=== PATIENT | female | born 1950 ===

== ENCOUNTER 2020-12-16 02:24 | Inpatient (IN) ==
[2020-12-16] MEDS ORDERED: GLUCAGON 1 MG VIAL IM PRN (05:44)
[2020-12-16] MEDS ORDERED: ONDANSETRON 4 MG/2 ML VIAL IV PRN (05:44)
[2020-12-16] MEDS ORDERED: DEXTROSE 50% 25 GM/50 ML VIAL IV PRN (05:44)
[2020-12-16] MEDS ORDERED: LACTULOSE 20 GM/30 ML UDCUP PO SCH (06:00)
[2020-12-16] MEDS: SODIUM CHLORIDE 0.9% 1,000 ML IV SCH ×2 (06:30→18:05)
[2020-12-16 07:59] LABS: Basophils % 0.8 % (0.0-0.8); Eosinophils % 1.1 % (0.00-10.9); Hematocrit 32.6 VOL% (35.7-47.0); Hemoglobin 10.7 GM/DL (12.0-16.0); Immature Granulocytes % 0.8 %; Immature Granulocytes Absolute 0.02 #; Lymphocytes # 0.4 10*3/uL (1.4-4.0); Lymphocytes % 16.3 % (21.3-54.2); Mean Corpuscular HGB Conc 32.8 GM/DL (32-36); Mean Corpuscular Volume 99.1 FL (87-102); Mean Platelet Volume 12.9 FL (9.6-12.0); Monocytes % 15.5 % (1.7-12.7); Neutrophils % 65.5 % (38.7-73.9); Platelet Count 41 T/CUMM (130-400); Red Blood Count 3.29 MC/CUMM (3.8-5.5); Red Cell Distribution Width 14.9 % (9.3-17.3); White Blood Count 2.6 T/CUMM (4-12)
[2020-12-16 08:08] LABS: INR 1.2; PT Patient Result 13.2 SECS (9.8-11.9)
[2020-12-16 08:16] LABS: Hypochromasia 1+; Platelet Estimate Decreased
[2020-12-16] MEDS: INSULIN REGULAR 100 UNIT/ML SUBCUT SCH ×4 (08:56→20:53)
[2020-12-16] MEDS ORDERED: RIFAXIMIN 550 MG TABLET PO SCH (09:00)
[2020-12-16 09:09] LABS: Albumin 1.5 G/DL (3.4-5.0); Bilirubin,Total 2.4 MG/DL (0.2-1.0); Calcium 8.8 MG/DL (8.5-10.1); Osmolality,Calculated 292.3 MOS/KG (273-304); Total Protein 6.7 G/DL (5.0-7.5)
[2020-12-16] MEDS: ALBUTEROL 2.5 MG/3 ML NEB RESP TX SCH ×3 (09:59→19:41)
[2020-12-16] MEDS: FUROSEMIDE 40 MG TABLET PO SCH (15:08)
[2020-12-16] MEDS: CALCIUM (CARBONATE) 600 MG TABLET PO SCH ×2 (15:08→21:05)
[2020-12-16] MEDS: LACTULOSE 20 GM/30 ML UDCUP PO SCH ×4 (15:08→21:05)
[2020-12-16] MEDS: PANTOPRAZOLE 40 MG TABLET PO SCH (15:09)
[2020-12-16] MEDS: SPIRONOLACTONE 100 MG TABLET PO SCH (15:09)
[2020-12-16] MEDS: ASPIRIN EC 81 MG TABLET PO SCH (15:09)
[2020-12-16] MEDS: amLODIPine 10 MG TABLET PO SCH (15:10)
[2020-12-16] MEDS ORDERED: SODIUM CHLORIDE 0.9% 1,000 ML IV PRN (16:01)
[2020-12-16] MEDS: RIFAXIMIN 550 MG TABLET NG SCH (21:05)
[2020-12-17] MEDS: ALBUTEROL 2.5 MG/3 ML NEB RESP TX SCH ×4 (00:01→20:14)
[2020-12-17] MEDS: LACTULOSE 20 GM/30 ML UDCUP PO SCH ×6 (01:33→21:03)
[2020-12-17] MEDS: SODIUM CHLORIDE 0.9% 1,000 ML IV SCH ×2 (03:23→19:29)
[2020-12-17 04:54] LABS: Basophils % 0.6 % (0.0-0.8); Eosinophils % 0.3 % (0.00-10.9); Hematocrit 31.5 VOL% (35.7-47.0); Hemoglobin 10.8 GM/DL (12.0-16.0); Immature Granulocytes % 0.3 %; Immature Granulocytes Absolute 0.01 #; Lymphocytes # 0.3 10*3/uL (1.4-4.0); Lymphocytes % 8.8 % (21.3-54.2); Mean Corpuscular HGB Conc 34.3 GM/DL (32-36); Mean Corpuscular Volume 98.1 FL (87-102); Mean Platelet Volume 12.4 FL (9.6-12.0); Monocytes % 14.4 % (1.7-12.7); Neutrophils % 75.6 % (38.7-73.9); Platelet Count 43 T/CUMM (130-400); Red Blood Count 3.21 MC/CUMM (3.8-5.5); Red Cell Distribution Width 15.4 % (9.3-17.3); White Blood Count 3.5 T/CUMM (4-12)
[2020-12-17 05:07] LABS: INR 1.3; PT Patient Result 13.6 SECS (9.8-11.9)
[2020-12-17 05:16] LABS: Platelet Estimate Decreased
[2020-12-17 05:25] LABS: Albumin 1.6 G/DL (3.4-5.0); Bilirubin,Total 2.8 MG/DL (0.2-1.0); Calcium 8.8 MG/DL (8.5-10.1); Potassium 3.7 MMOL/L (3.5-5.1); Total Protein 6.6 G/DL (5.0-7.5)
[2020-12-17 06:56] LABS: Bacteria,Urine Many /HPF (Few); Bilirubin,Urine Negative (Negative); Blood, Urine Large mg/dL (Negative); Glucose,Urine (UA) Negative (Negative); Ketones,Urine Negative (Negative); Mucus,Urine Moderate /LPF (Occasional); Nitrite,Urine Negative (Negative); Protein,Urine 100 MG/DL; RBC,Urine 36 /HPF (0-4); Urine Appearance CLOUDY (Clear); Urine Color Yellow (Yellow); Urine Specific Gravity 1.014 (1.001-1.035); WBC,Urine 4383 /HPF (0-6)
[2020-12-17] MEDS: INSULIN REGULAR 100 UNIT/ML SUBCUT SCH ×4 (08:40→21:17)
[2020-12-17] MEDS ORDERED: SODIUM CHLORIDE 0.9% 1,000 ML IV PRN (08:53)
[2020-12-17] MEDS: SPIRONOLACTONE 100 MG TABLET PO SCH (10:50)
[2020-12-17] MEDS: ASPIRIN EC 81 MG TABLET PO SCH (10:50)
[2020-12-17] MEDS: RIFAXIMIN 550 MG TABLET NG SCH ×2 (10:51→21:03)
[2020-12-17] MEDS: amLODIPine 10 MG TABLET PO SCH (10:51)
[2020-12-17] MEDS: PANTOPRAZOLE 40 MG TABLET PO SCH (10:51)
[2020-12-17] MEDS: FUROSEMIDE 40 MG TABLET PO SCH (10:51)
[2020-12-17] MEDS: CALCIUM (CARBONATE) 600 MG TABLET PO SCH ×2 (10:51→21:03)
[2020-12-17] MEDS: cefTRIAXone 1,000 MG in SYRINGE 1 EACH IV SCH (11:16)
[2020-12-18] MEDS: LACTULOSE 20 GM/30 ML UDCUP PO SCH ×6 (01:00→21:07)
[2020-12-18] MEDS: ALBUTEROL 2.5 MG/3 ML NEB RESP TX SCH ×4 (01:21→19:55)
[2020-12-18] MEDS: SODIUM CHLORIDE 0.9% 1,000 ML IV SCH ×3 (05:05→13:13)
[2020-12-18 08:01] LABS: Basophils % 0.8 % (0.0-0.8); Eosinophils # 0.1 10*3/uL (0.0-0.87); Eosinophils % 3.1 % (0.00-10.9); Hematocrit 33.6 VOL% (35.7-47.0); Hemoglobin 10.7 GM/DL (12.0-16.0); Immature Granulocytes % 1.1 %; Immature Granulocytes Absolute 0.03 #; Lymphocytes # 0.5 10*3/uL (1.4-4.0); Lymphocytes % 20.2 % (21.3-54.2); Mean Corpuscular HGB Conc 31.8 GM/DL (32-36); Mean Corpuscular Volume 103.1 FL (87-102); Mean Platelet Volume 12.8 FL (9.6-12.0); Monocytes % 16.4 % (1.7-12.7); Neutrophils % 58.4 % (38.7-73.9); Platelet Count 48 T/CUMM (130-400); Red Blood Count 3.26 MC/CUMM (3.8-5.5); Red Cell Distribution Width 15.7 % (9.3-17.3); White Blood Count 2.6 T/CUMM (4-12)
[2020-12-18 08:15] LABS: Albumin 1.6 G/DL (3.4-5.0); Bilirubin,Total 2.6 MG/DL (0.2-1.0); Calcium 9.1 MG/DL (8.5-10.1); Osmolality,Calculated 300.7 MOS/KG (273-304); Potassium 3.4 MMOL/L (3.5-5.1)
[2020-12-18 08:21] LABS: Eosinophils 5 % (0-10); Hypochromasia 1+; Lymphocytes 21 % (20-55); Microcytosis 1+; Platelet Estimate Decreased; Segmented Neutrophils 60 % (50-85); Total Cells Counted 100
[2020-12-18] MEDS ORDERED: SODIUM CHLORIDE 0.9% 1,000 ML IV PRN (08:43)
[2020-12-18] MEDS ORDERED: POTASSIUM CHLORIDE 20 MEQ/15 ML UDCUP PO ONE (08:52)
[2020-12-18] MEDS: RIFAXIMIN 550 MG TABLET NG SCH ×2 (09:28→21:06)
[2020-12-18] MEDS: PANTOPRAZOLE 40 MG TABLET PO SCH (09:28)
[2020-12-18] MEDS: SPIRONOLACTONE 100 MG TABLET PO SCH (09:28)
[2020-12-18] MEDS: amLODIPine 10 MG TABLET PO SCH (09:28)
[2020-12-18] MEDS: FUROSEMIDE 40 MG TABLET PO SCH (09:28)
[2020-12-18] MEDS: ASPIRIN EC 81 MG TABLET PO SCH (09:28)
[2020-12-18] MEDS: CALCIUM (CARBONATE) 600 MG TABLET PO SCH ×2 (09:28→21:06)
[2020-12-18] MEDS: cefTRIAXone 1,000 MG in SYRINGE 1 EACH IV SCH (09:29)
[2020-12-18] MEDS: INSULIN REGULAR 100 UNIT/ML SUBCUT SCH ×4 (09:30→21:06)
[2020-12-19] MEDS: LACTULOSE 20 GM/30 ML UDCUP PO SCH ×4 (01:21→16:20)
[2020-12-19] MEDS: ALBUTEROL 2.5 MG/3 ML NEB RESP TX SCH ×4 (02:45→19:58)
[2020-12-19 06:13] LABS: Basophils % 0.6 % (0.0-0.8); Eosinophils # 0.1 10*3/uL (0.0-0.87); Hematocrit 30.7 VOL% (35.7-47.0); Hemoglobin 9.9 GM/DL (12.0-16.0); Immature Granulocytes % 0.9 %; Immature Granulocytes Absolute 0.03 #; Lymphocytes # 0.3 10*3/uL (1.4-4.0); Lymphocytes % 10.4 % (21.3-54.2); Mean Corpuscular HGB Conc 32.2 GM/DL (32-36); Mean Platelet Volume 11.9 FL (9.6-12.0); Monocytes % 12.3 % (1.7-12.7); Neutrophils % 71.8 % (38.7-73.9); Platelet Count 49 T/CUMM (130-400); Red Blood Count 3.01 MC/CUMM (3.8-5.5); Red Cell Distribution Width 15.4 % (9.3-17.3); White Blood Count 3.3 T/CUMM (4-12)
[2020-12-19 06:35] LABS: Albumin 1.6 G/DL (3.4-5.0); Bilirubin,Total 2.4 MG/DL (0.2-1.0); Calcium 8.7 MG/DL (8.5-10.1); Potassium 3.7 MMOL/L (3.5-5.1); Total Protein 6.5 G/DL (5.0-7.5)
[2020-12-19 06:37] LABS: Hypochromasia 1+; Microcytosis 1+
[2020-12-19 06:38] LABS: Ovalocytes Slight; Platelet Estimate Decreased
[2020-12-19] MEDS: FUROSEMIDE 40 MG TABLET PO SCH (08:55)
[2020-12-19] MEDS: CALCIUM (CARBONATE) 600 MG TABLET PO SCH ×2 (08:55→21:40)
[2020-12-19] MEDS: RIFAXIMIN 550 MG TABLET NG SCH ×2 (08:55→21:40)
[2020-12-19] MEDS: ASPIRIN EC 81 MG TABLET PO SCH (08:55)
[2020-12-19] MEDS: SPIRONOLACTONE 100 MG TABLET PO SCH (08:55)
[2020-12-19] MEDS: amLODIPine 10 MG TABLET PO SCH (08:56)
[2020-12-19] MEDS: PANTOPRAZOLE 40 MG TABLET PO SCH (08:56)
[2020-12-19] MEDS: cefTRIAXone 1,000 MG in SYRINGE 1 EACH IV SCH (08:57)
[2020-12-19] MEDS: INSULIN REGULAR 100 UNIT/ML SUBCUT SCH ×4 (08:57→21:41)
[2020-12-20] MEDS: ALBUTEROL 2.5 MG/3 ML NEB RESP TX SCH ×3 (00:07→07:50)
[2020-12-20] MEDS: LACTULOSE 20 GM/30 ML UDCUP PO SCH ×2 (00:56→09:08)
[2020-12-20 05:47] LABS: Basophils % 0.3 % (0.0-0.8); Eosinophils # 0.1 10*3/uL (0.0-0.87); Eosinophils % 3.9 % (0.00-10.9); Hematocrit 30.9 VOL% (35.7-47.0); Immature Granulocytes % 0.6 %; Immature Granulocytes Absolute 0.02 #; Lymphocytes # 0.4 10*3/uL (1.4-4.0); Lymphocytes % 11.4 % (21.3-54.2); Mean Corpuscular HGB Conc 32.4 GM/DL (32-36); Mean Platelet Volume 12.4 FL (9.6-12.0); Monocytes % 16.2 % (1.7-12.7); Neutrophils % 67.6 % (38.7-73.9); Platelet Count 46 T/CUMM (130-400); Red Blood Count 3.03 MC/CUMM (3.8-5.5); Red Cell Distribution Width 15.2 % (9.3-17.3); White Blood Count 3.3 T/CUMM (4-12)
[2020-12-20 05:59] LABS: Albumin 1.5 G/DL (3.4-5.0); Bilirubin,Total 2.1 MG/DL (0.2-1.0); Calcium 8.6 MG/DL (8.5-10.1); Osmolality,Calculated 287.4 MOS/KG (273-304); Potassium 3.8 MMOL/L (3.5-5.1); Total Protein 6.1 G/DL (5.0-7.5)
[2020-12-20 07:15] LABS: Band Neutrophils 1 % (0-10); Eosinophils 5 % (0-10); Lymphocytes 5 % (20-55); Segmented Neutrophils 78 % (50-85); Total Cells Counted 100
[2020-12-20 07:16] LABS: Anisocytosis 2+; Ovalocytes Few; Polychromasia Slight; Schistocytes Slight
[2020-12-20 07:17] LABS: Platelet Estimate Decreased
[2020-12-20] MEDS: RIFAXIMIN 550 MG TABLET NG SCH (09:06)
[2020-12-20] MEDS: ASPIRIN EC 81 MG TABLET PO SCH (09:06)
[2020-12-20] MEDS: CALCIUM (CARBONATE) 600 MG TABLET PO SCH (09:06)
[2020-12-20] MEDS: FUROSEMIDE 40 MG TABLET PO SCH (09:07)
[2020-12-20] MEDS: SPIRONOLACTONE 100 MG TABLET PO SCH (09:07)
[2020-12-20] MEDS: PANTOPRAZOLE 40 MG TABLET PO SCH (09:07)
[2020-12-20] MEDS: amLODIPine 10 MG TABLET PO SCH (09:07)
[2020-12-20] MEDS: INSULIN REGULAR 100 UNIT/ML SUBCUT SCH (09:10)
[2020-12-20] MEDS: cefTRIAXone 1,000 MG in SYRINGE 1 EACH IV SCH (09:11)
[2020-12-20 11:28] VITALS: BP 118/63
== END 2020-12-20 12:02 | disposition hospice, home (50) | DRG 435 ==
LOC: SUATTDRO 04:04 → N.4E 04:04
PROVIDERS: ADMIT Internal Medicine; ATTEND Internal Medicine